=== PATIENT | female | born 2005 | race Caucasian/White ===

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

== ENCOUNTER 2023-10-23 12:16 | Emergency (ER) | payer MEDICAID, SELFPAY ==
--- NOTE | ~2023-10-23 | XR_ITS ---
EXAMINATION: XR chest 1V portable 10/23/2023 12:30 INDICATION: Upper respiratory infection PROCEDURE: AP portable chest COMPARISON: 02/13/2017 FINDINGS: The lungs are clear. The cardiomediastinal silhouette is within normal limits. There are no pleural effusions. There is no pneumothorax suspected. IMPRESSION: 1: NO ACUTE CARDIOPULMONARY DISEASE. Reviewed, dictated and finalized at location B.
[2023-10-23 12:19] VITALS: BP 127/93; PULSE 102; RESP 20; TEMP 36.8; O2SAT 99
[2023-10-23 13:15] LABS: Influenza A QL RT-PCR Negative (Negative); Influenza B QL RT-PCR Negative (Negative); RSV RNA, RT-PCR Negative (Negative); SARS-CoV-2 RNA PCR Negative (Negative)
--- NOTE | 2023-10-23 13:32 | ED.GENADULT ---
HPI - General Adult General Chief complaint: Upper Respiratory Infection Stated complaint: strep +, ear pain, ST Time Seen by Provider: 10/23/23 12:19 History of Present Illness HPI narrative: 18-year-old female presents to the emergency department for evaluation for persistent sore throat. Patient states she has had a sore throat for the last few days. Patient did get evaluated at [facility] and was diagnosed with strep throat and was started on antibiotics probably 2 days ago. Patient states she is still having sore throat and ear pain. Patient states that she has been taking the antibiotic but has not been taking anything for pain control. Related Data Home Medications Medication Instructions Recorded Confirmed No Home Medications 01/10/21 01/10/21 Allergies Allergy/AdvReac Type Severity Reaction Status Date / Time No Known Allergies Allergy Verified 10/23/23 12:34 Review of Systems Review of Systems: All systems reviewed & are unremarkable except as noted in HPI and below PMFSH Past Medical History Medical History (Updated 10/23/23 @ 13:35 by Alexis Denise MD) No active medical problems Social History Social History (Updated 01/10/21 @ 11:24 by Nataliya Doyle PA-C) Smoking status: Never smoker Exam Narrative: APPEARANCE: Well appearing, no pain, no distress, well-nourished. HEAD: normocephalic, atraumatic. EYES: PERRLA/EOMI, conjunctivae clear. NOSE: Normal no drainage EARS:TMS clear with good light reflex. THROAT: Pharynx clear, no exudate. NECK: Supple. No adenopathy, no masses. RESPIRATORY: Airway patent, respirations nonlabored. Clear to auscultation bilaterally, no rales, rhonchi, wheezing. CARDIOVASCULAR: Regular rate and rhythm without murmurs rubs or gallops. ABDOMINAL: Soft, nontender, nondistended, normal bowel sounds MUSCULOSKELETAL: Moves all extremities. Strength/ROM intact, No edema, No calf tenderness. NEURO: Alert. Cranial nerves II through XII intact. SKIN: Warm, dry. Normal Color Course Vital Signs Vital signs: Vital Signs Temperature 98.3 F 10/23/23 12:19 Pulse Rate 102 H 10/23/23 12:19 Respiratory Rate 20 10/23/23 12:19 Blood Pressure 127/93 H 10/23/23 12:19 Pulse Oximetry 99 10/23/23 12:19 Oxygen Delivery Room Air 10/23/23 12:19 Temperature 98.3 F 10/23/23 12:19 Pulse Rate 102 H 10/23/23 12:19 Respiratory Rate 20 10/23/23 12:19 Blood Pressure 127/93 H 10/23/23 12:19 Pulse Oximetry 99 10/23/23 12:19 Oxygen Delivery Room Air 10/23/23 12:37 Medical Decision Making MDM Narrative Medical decision making narrative: 18-year-old female presents emergency department for evaluation for ear pain and sore throat. Exam shows tonsils with exudate but tonsils are not kissing and no posterior swelling. No concern for peritonsillar posterior pharyngeal abscess. Patient states she has not been taking Tylenol or ibuprofen for pain control. Patient was advised to do this. Patient is also treated with a single dose of IM dexamethasone. Patient was encouraged of close follow-up with her primary care physician. All questions concerns were addressed. Patient was well-appearing at time of discharge. Differential Diagnosis Differential Diagnosis: Strep, COVID, thoughts last, peritonsillar abscess, posterior pharyngeal abscess Vital Signs Vital Signs: Vital Signs Temperature 98.3 F 10/23/23 12:19 Pulse Rate 102 H 10/23/23 12:19 Respiratory Rate 20 10/23/23 12:19 Blood Pressure 127/93 H 10/23/23 12:19 Pulse Oximetry 99 10/23/23 12:19 Oxygen Delivery Room Air 10/23/23 12:19 Temperature 98.3 F 10/23/23 12:19 Pulse Rate 102 H 10/23/23 12:19 Respiratory Rate 20 10/23/23 12:19 Blood Pressure 127/93 H 10/23/23 12:19 Pulse Oximetry 99 10/23/23 12:19 Oxygen Delivery Room Air 10/23/23 12:37 Lab Data Lab results reviewed: Yes I reviewed the patient's lab results. Labs: Lab Results
== END 2023-10-23 14:02 | disposition home or self-care (01) ==
PROVIDERS: Emergency Provider Emergency Medicine
DX: J02.9 Acute pharyngitis, unspecified (principal); Z20.822 Contact with and (suspected) exposure to COVID-19
CPT/HCPCS: 71045; 87637; 99283

== ENCOUNTER 2023-11-12 09:04 | Emergency (ER) | payer MEDICAID, SELFPAY ==
[2023-11-12 09:06] VITALS: BP 147/76; PULSE 118; RESP 16; TEMP 37; O2SAT 100
[2023-11-12 09:38] LABS: Strep Group A RT-PCR DETECTED (Negative)
--- NOTE | 2023-11-12 10:32 | ED.GENADULT ---
[facility] - General Adult General Chief complaint: Unspecified Stated complaint: sore throat Time Seen by Provider: 11/12/23 10:22 Source: patient Mode of arrival: ambulatory Limitations: no limitations History of Present Illness HPI narrative: This is a 18-year-old female who presents to the ED for chief complaint sore throat Beginning yesterday evening. 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 States that she took did take 10 days worth of Augmentin and seemed to have complete resolution with that course. States that this strep throat is going around the daycare again and she feels she may have contracted it again. Denies fevers, chills, worse or muffled voice, drooling, trismus, dysphagia. Related Data Allergies Allergy/AdvReac Type Severity Reaction Status Date / Time No Known Allergies Allergy Verified 11/12/23 10:19 Review of Systems Review of Systems: All systems as dictated in [facility] Past Medical History Medical History (Updated 11/12/23 @ 10:35 by Randy Dallas PA-C) No active medical problems Social History Social History (Updated 01/10/21 @ 11:24 by Nataliya Doyle PA-C) Smoking status: Never smoker Exam Narrative: GENERAL: Well-appearing, well-nourished, and in no acute distress. HEAD: Normocephalic, atraumatic. EYES: PERRLA and EOMI. ENT: 3 to 4+ tonsillar swelling bilaterally. Exudates noted bilaterally. Uvula is midline. No muffled voice. No trismus or drooling. TMs normal bilaterally Nares clear, no rhinorrhea or epistaxis. Mucous membranes moist. Oropharynx without tonsillar hypertrophy exudate or other lesions. NECK: Supple. No adenopathy or masses. CHEST: No respiratory distress. Clear to auscultation. No wheezes rales or rhonchi HEART: Regular rate and rhythm. No murmur heard. Normal peripheral pulses. ABDOMEN: Soft, nontender, nondistended, normal active bowel sounds. MSK: Normal range of motion. No edema. SKIN: Warm, dry, no rash. NEURO: Alert and oriented x4. No focal deficits. PSYCH: Normal mood and affect. Course Vital Signs Vital signs: Vital Signs Temperature 98.6 F 11/12/23 09:06 Pulse Rate 118 H 11/12/23 09:06 Respiratory Rate 16 11/12/23 09:06 Blood Pressure 147/76 H 11/12/23 09:06 Pulse Oximetry 100 11/12/23 09:06 Oxygen Delivery Room Air 11/12/23 09:06 Temperature 98.6 F 11/12/23 09:06 Pulse Rate 75 11/12/23 10:53 Respiratory Rate 18 11/12/23 10:53 Blood Pressure 112/78 11/12/23 10:53 Pulse Oximetry 98 11/12/23 10:53 Oxygen Delivery Room Air 11/12/23 09:06 Medical Decision Making MDM Narrative Medical decision making narrative: this is a 18-year-old female who presents to the ED for chief complaint of sore throat. Trip swab is positive here. Vitals are normal. Seems she is likely having a repeat bout of strep pharyngitis. 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 She did well on Augmentin previously so we will prescribe this again today. Encouraged to follow up with PCP closely on this issue since this is a 2nd bout of strep throat and a very short time. Offered further workup with labs but patient is deferring today. I think this is very reasonable. Presentation is consistent with strep pharyngitis. Pt will be discharged in stable condition. Return precautions given and supportive measures discussed. Pt is understanding and agreeable with plan for discharge and follow-up with PCP. Vital Signs Vital Signs: Vital Signs Temperature 98.6 F 11/12/23 09:06 Pulse Rate 118 H 11/12/23 09:06 Respiratory Rate 16 11/12/23 09:06 Blood Pressure 147/76 H 11/12/23 09:06 Pulse Oximetry 100 11/12/23 09:06 Oxygen Delivery Room Air 11/12/23 09:06 Temperature 98.6 F 11/12/23 09:06 Pulse Rate 75 11/12/23 10:53 Respiratory Rate 18 11/12/23 10:53 Blood Pressure 112/78 11/12/23 10:53 Pulse Ox
[2023-11-12 10:53] VITALS: BP 112/78; PULSE 75; RESP 18; O2SAT 98
[2023-11-12 11:29] LABS: Influenza A QL RT-PCR Negative (Negative); Influenza B QL RT-PCR Negative (Negative); RSV RNA, RT-PCR Negative (Negative); SARS-CoV-2 RNA PCR Negative (Negative)
== END 2023-11-12 10:54 | disposition home or self-care (01) ==
PROVIDERS: Emergency Medicine; Emergency Provider Physician Assistant
DX: J02.0 Streptococcal pharyngitis (principal); Z20.822 Contact with and (suspected) exposure to COVID-19
CPT/HCPCS: 87637; 87651; 99283

== ENCOUNTER 2023-12-14 19:53 | Emergency (ER) | payer MEDICAID, SELFPAY ==
[2023-12-14 20:09] VITALS: BP 131/72; PULSE 82; RESP 18; TEMP 36.6; O2SAT 100
[2023-12-14 21:05] LABS: Strep Group A RT-PCR NOT DETECTED (Negative)
[2023-12-14 22:04] LABS: Influenza A QL RT-PCR Negative (Negative); Influenza B QL RT-PCR Negative (Negative); RSV RNA, RT-PCR Negative (Negative); SARS-CoV-2 RNA PCR Negative (Negative)
[2023-12-14 22:30] VITALS: BP 114/75; PULSE 66; RESP 18; TEMP 36.7; O2SAT 99
--- NOTE | 2023-12-14 23:12 | ED.URI ---
HPI - URI/Sore Throat General Chief Complaint: Upper Respiratory Infection Stated Complaint: sore throat Time Seen by Provider: 12/14/23 20:57 Source: patient Mode of arrival: ambulatory Limitations: no limitations History of Present Illness HPI Narrative: This is a 18-year-old female that presents to the emergency department for cold symptoms present over the last 6 days. Reports cough, congestion, rhinorrhea. Denies fevers or sore throat Related Data Allergies Allergy/AdvReac Type Severity Reaction Status Date / Time No Known Allergies Allergy Verified 12/14/23 19:54 Review of Systems Review of Systems: CONSTITUTIONAL: Denies fever ENT: Reports rhinorrhea, congestion. Denies sore throat, or otalgia. RESPIRATORY: Reports cough All systems reviewed & are unremarkable except as noted in HPI and below PMFSH Past Medical History Medical History (Updated 12/14/23 @ 23:13 by Nataliya Doyle PA-C) No active medical problems Social History Social History (Updated 01/10/21 @ 11:24 by Nataliya Doyle PA-C) Smoking status: Never smoker Exam Narrative: GENERAL: Well-appearing, well-nourished, and in no acute distress. HEAD: Normocephalic, atraumatic. EYES: EOMI. ENT: Nares clear, no rhinorrhea or epistaxis. Mucous membranes moist. Oropharynx without tonsillar hypertrophy exudate or other lesions. Bilateral TMs pearly ceballos non-bulging NECK: Supple. No adenopathy or masses. CHEST: Clear to auscultation. No respiratory distress. No wheezes rales or rhonchi HEART: Regular rate and rhythm. No murmur heard. Normal peripheral pulses. EXTREMITIES: Normal range of motion. No edema. SKIN: Warm, dry, no rash. NEURO: No focal deficits. Alert and oriented x3. PSYCH: Normal mood and affect Course Course Emergency Course: patient updated on workup and agrees with plan of care Vital Signs Vital signs: Vital Signs Temperature 97.9 F 12/14/23 20:09 Pulse Rate 82 12/14/23 20:09 Respiratory Rate 18 12/14/23 20:09 Blood Pressure 131/72 12/14/23 20:09 Pulse Oximetry 100 12/14/23 20:09 Temperature 97.9 F 12/14/23 20:09 Pulse Rate 82 12/14/23 20:09 Respiratory Rate 18 12/14/23 20:09 Blood Pressure 131/72 12/14/23 20:09 Pulse Oximetry 100 12/14/23 20:09 MDM - URI/Sore Throat MDM Narrative Medical decision making narrative: patient presents the emergency department for cold symptoms present over the last 6 days. She is afebrile and nontoxic appearing. Lungs are clear on exam. Influenza, RSV, COVID, strep screens are negative. Patient was updated on her workup. Instructed on further care viral infection. She is to follow up with primary provider. She was given warnings to return to the ER Differential Diagnosis Differential diagnosis: Likely upper respiratory infection, sinusitis, viral infection, bronchitis, influenza, pharyngitis and other (COVID) Lab Data Attestation: I reviewed the patient's lab results. Labs: Lab Results 12/14/23 Range/Units 20:30 Influenza A (RT-PCR) Negative (Negative) Influenza B (RT-PCR) Negative (Negative) RSV (RT-PCR) Negative (Negative) SARS-CoV-2 RNA (RT-PCR) Negative (Negative) Group A Strep (PCR) Not detected (Negative) Critical Care Time Critical Care Time Critical Care Time: No Discharge Plan Discharge Clinical Impression: Upper respiratory infection Qualifiers: URI type: unspecified URI Qualified Code(s): J06.9 - Acute upper respiratory infection, unspecified Patient Disposition: Home, Self-Care Condition: Stable Instructions: Upper Respiratory Infection (ED) Additional Instructions: Return to the emergency department for worsening symptoms, or any other concerns Remain well-hydrated, get plenty of rest. Take Tylenol or Motrin [id number] for pain as needed. Flonase for nasal congestion. Zyrtec for runny nose. Lozenges or Chloraseptic spray for sore throat. Follow up wit
== END 2023-12-14 23:17 | disposition home or self-care (01) ==
PROVIDERS: Emergency Provider Physician Assistant
DX: J06.9 Acute upper respiratory infection, unspecified (principal); Z20.822 Contact with and (suspected) exposure to COVID-19
CPT/HCPCS: 87637; 87651; 99283

== ENCOUNTER 2024-05-08 18:23 | Emergency (ER) | payer OTHER, SELFPAY ==
--- OUTSIDE RECORDS SUMMARY | 2024-05-08 18:24 | XMS_ITS | Patient Health Summary ---
Author Organization [facility] Address [address] [place] [address] Care Team Providers Care Hot Knife Foxing Cutter Name Role Phone Theron Gregory MD [facility] Care Provider Note from [facility],non-owned Affiliates and Associated Physician Practices is amultiple site organization consisting of ambulatory clinics and hospital sitesin [place], [place], [place] and [place]. This disclosure is being madepursuant to the Care Everywhere program and may not contain all information available regarding this patient. Last updated 17.[facility] Allergies No known active allergies Medications * Be aware that medications may not be up to date on this document. Alwaysverify current medications with the patient. * ibuprofen (MOTRIN) 200 MG tablet Take 400 mg by mouth every 6 hours as needed for Pain Active Problems Problem Noted Date Diagnosed Date Chronic right-sided low back pain without sciati ca 03/20/2020 Acute left ankle pain 06/12/2018 Lisfranc dislocation, left, subsequent encounter 12/03/2017 Social History Tobacco Use Types Packs/Day Years Used Date Smoking Tobacco: Never Smokeless Tobacco: Never Sex and Gender Information Value Date Recorded Sex Assigned at Not on file Gender Identity Not on file Sexual Orientation Not on file Last Filed Vital Signs Vital Sign Reading Time Taken Comments Blood Pressure 128/58 03/20/2020 2:02 PM PROCESS TREATER Pulse 100 06/18/2013 12:08 PM CDT Temperature - - Respiratory Rate 24 06/18/2013 12:08 PM CDT Oxygen Saturation 100% 06/18/2013 12:08 PM CDT Inhaled Oxygen Concentration - - Weight 60.6 kg (133 lb 9.6 oz) 03/20/2020 2:02 P M PROCESS TREATER Height 164.8 cm (5' 4.88 ) 03/20/2020 2:02 PM CS T Body Mass Index 22.31 03/20/2020 2:02 PM PROCESS TREATER Procedures * XR SPINE ENTIRE 2 OR 3VW(Performed 03/20/2020) Performed for Other back pain, unspecified chronicity * XR ANKLE LEFT 3VW OR MORE(Performed 06/12/2018) Performed for Acute left ankle pain * XR FOOT LEFT WT BEARING 3VW(Performed 03/04/2018) Performed for Lisfranc dislocation, left, subsequent encounter * XR FOOT RIGHT WT BEARING 3VW(Performed 03/04/2018) Performed for Lisfranc dislocation, left, subsequent encounter * XR FOOT LEFT WT BEARING 3VW(Performed 12/31/2017) Performed for Lisfranc dislocation, left, subsequent encounter * XR FOOT LEFT WT BEARING 3VW(Performed 12/03/2017) Performed for Closed nondisplaced fracture of first metatarsal bone of left foot, initial encounter, Closed nondisplaced fracture of second metatarsal bone of left foot, initial encounter, Closed nondisplaced fracture of intermediate cuneiform of left foot, initial encounter * CT LOWER EXT LEFT WO CONTRAST(Performed 11/12/2017) Performed for Foot injury, left, initial encounter * MRI BRAIN WO CONTRAST(Performed 06/18/2013) Performed for Headache Results * XR SPINE ENTIRE 2 OR 3VW (03/20/2020 2:17 PM PROCESS TREATER) Anatomical Region Laterality Modality Spine Radiographic Zayda ging 03/20/2020 2:16 PM PROCESS TREATER Impressions 03/20/2020 2:42 PM PROCESS TREATER 1. Spinal curvature as above, no intrinsic vertebral body anomaly. Please see orthopedic surgery note for Ramirez angle measurements. 2. Right inferior pelvic tilt. Risser IV-V Reading Radiologist: Troy Funez on 03/20/2020 at 2:42 PM Narrative 03/20/2020 2:42 PM PROCESS TREATER INDICATION: Other dorsalgia COMPARISON: None available. TECHNIQUE: Upright frontal and lateral view(s) of the spine. FINDINGS: There are 12 bilateral thoracic ribs, 5 nonrib-bearing lumbar-type vertebral bodies. No paraspinal thickening or intrinsic vertebral body anomaly. S-shaped spinal curvature, measurements to be made by orthopedics. Right inferior pelvic tilt, Risser IV-V. No dislocation of the hips. No lytic or blastic bony lesion No vertebral body compression. No presacral mass effect. No spondylolisthesis or spondylolysis. Disc spaces appear maintained. Other findings: Cardiac size normal. Midline trachea. Clear lungs. No free air. Mild to moderate amount of stool. No unexpected abdominal calcification or mass effect. Procedure Note Troy Funez MD - 03/20/2020 INDICATION: Other dorsalgia COMPARISON: None available. TECHNIQUE: Upright frontal and lateral view(s) of the spine. FINDINGS: There are 12 bilateral thoracic ribs, 5 nonrib-bearing lumbar-typevertebral bodies. No paraspinal thickening or intrinsic vertebral body anomaly.S-shaped spinal curvature, measurements to be made by orthopedics. Right inferiorpelvic tilt, Risser IV-V. No dislocation of the hips. No lytic or blastic bonylesion No vertebral body compression. No presacral mass effect. Nospondylolisthesis or spondylolysis. Disc spaces appear maintained. Other findings: Cardiac size normal. Midline trachea. Clear lungs. No freeair. Mild to moderate amount of stool. No unexpected abdominal calcification ormass effect. IMPRESSION 1. Spinal curvature as above, no intrinsic vertebral body anomaly. Pleasesee orthopedic surgery note for Ramirez angle measurements. 2. Right inferior pelvic tilt. Risser IV-V Reading Radiologist: Troy Funez on 03/20/2020 at 2:42 PM Ashish S Rambo MIG[facility]EL DIAGNOSTIC IMAGING O RDERABLES * XR ANKLE LEFT 3VW OR MORE (06/12/2018 2:07 PM CDT) Anatomical Region Laterality Modality Lower Extremity Radiographic Zayda ging 06/12/2018 2:23 PM CDT Impressions 06/12/2018 2:28 PM CDT No acute ankle abnormality. Healing midfoot fractures. Reading Radiologist: Jaime Smith MD on 06/12/2018 at 2:28 PM Narrative 06/12/2018 2:28 PM CDT INDICATION: Left ankle pain, history of left foot Lisfranc injury EXAMINATION: 3 nonweightbearing view(s) of the left ankle 06/12/2018 COMPARISON: Multiple prior exams of the left foot including radiographs 03/04/[address] 11/12/2017 FINDINGS: Heterogeneous sclerosis of the base of the first metatarsal and medial cuneiform consistent with healing fractures. The ankle mortise is symmetric. Talar dome has normal contour and mineralization. Smooth accessory ossicle adjacent to the lateral malleolus. No acute fracture, joint effusion or subluxation. Procedure Note Jaime Smith MD - 06/12/2018 INDICATION: Left ankle pain, history of left foot Lisfranc injury EXAMINATION: 3 nonweightbearing view(s) of the left ankle 06/12/2018 COMPARISON: Multiple prior exams of the left foot including radiographs 03/04/[address] 11/12/2017 FINDINGS: Heterogeneous sclerosis of the base of the first metatarsal and medial cuneiform consistent with healing fractures. The ankle mortise is symmetric. Talar dome has normal contour and mineralization. Smooth accessory ossicle adjacent to the lateral malleolus. No acute fracture, joint effusion or subluxation. IMPRESSION No acute ankle abnormality. Healing midfoot fractures. Reading Radiologist: Jaime Smith MD on 06/12/2018 at 2:28 PM Srini Brantley PA-C DIAGNOSTIC IMAGING O RDERABLES * XR FOOT RIGHT WT BEARING 3VW (03/04/2018 11:36 AM PROCESS TREATER) Anatomical Region Laterality Modality Ankle / Foot Radiographic Zayda ging 03/04/2018 11:3 9 AM PROCESS TREATER Impressions 03/04/2018 11:43 AM PROCESS TREATER Healing left foot fractures. Bilateral pes planus. Reading Radiologist: Jaime Smith MD on 03/04/2018 at 11:43 AM Narrative 03/04/2018 11:43 AM PROCESS TREATER INDICATION: Dislocation of tarsometatarsal joint of left foot, subsequent encounter EXAMINATION: 3 weightbearing view(s) of the left foot 3 weightbearing views of the right foot COMPARISON: 6 left foot radiographs 12/31/2017, 12/03/2017; CT left foot 11/12/2017 FINDINGS: Left foot: Continued healing of the nondisplaced fractures of the base of the first metatarsal, medial and middle cuneiforms. No significant intermetatarsal widening. Normal tarsometatarsal alignment. Mild pes planus on lateral projection. Right foot: Pes planus. No fracture or subluxation. Joint spacing and alignment are preserved. Procedure Note Jaime Smith MD - 03/04/2018 INDICATION: Dislocation of tarsometatarsal joint of left foot, subsequent encounter EXAMINATION: 3 weightbearing view(s) of the left foot 3 weightbearing views of the right foot COMPARISON: 6 left foot radiographs 12/31/2017, 12/03/2017; CT left foot 11/12/2017 FINDINGS: Left foot: Continued healing of the nondisplaced fractures of the base of the first metatarsal, medial and middle cuneiforms. No significant intermetatarsal widening. Normal tarsometatarsal alignment. Mild pes planus on lateral projection. Right foot: Pes planus. No fracture or subluxation. Joint spacing and alignment are preserved. IMPRESSION Healing left foot fractures. Bilateral pes planus. Reading Radiologist: Jaime Smith MD on 03/04/2018 at 11:43 AM Lexa Massey MD DIAGNOSTIC IMAGING O RDERABLES * XR FOOT LEFT WT BEARING 3VW (03/04/2018 11:36 AM PROCESS TREATER) Only the most recent of3 resultswithin the time period is included. Anatomical Region Laterality Modality Ankle / Foot Radiographic Zayda ging 03/04/2018 11:3 9 AM PROCESS TREATER Impressions 03/04/2018 11:43 AM PROCESS TREATER Healing left foot fractures. Bilateral pes planus. Reading Radiologist: Jaime Smith MD on 03/04/2018 at 11:43 AM Narrative 03/04/2018 11:43 AM PROCESS TREATER INDICATION: Dislocation of tarsometatarsal joint of left foot, subsequent encounter EXAMINATION: 3 weightbearing view(s) of the left foot 3 weightbearing views of the right foot COMPARISON: 6 left foot radiographs 12/31/2017, 12/03/2017; CT left foot 11/12/2017 FINDINGS: Left foot: Continued healing of the nondisplaced fractures of the base of the first metatarsal, medial and middle cuneiforms. No significant intermetatarsal widening. Normal tarsometatarsal alignment. Mild pes planus on lateral projection. Right foot: Pes planus. No fracture or subluxation. Joint spacing and alignment are preserved. Procedure Note Jaime Smith MD - 03/04/2018 INDICATION: Dislocation of tarsometatarsal joint of left foot, subsequent encounter EXAMINATION: 3 weightbearing view(s) of the left foot 3 weightbearing views of the right foot COMPARISON: 6 left foot radiographs 12/31/2017, 12/03/2017; CT left foot 11/12/2017 FINDINGS: Left foot: Continued healing of the nondisplaced fractures of the base of the first metatarsal, medial and middle cuneiforms. No significant intermetatarsal widening. Normal tarsometatarsal alignment. Mild pes planus on lateral projection. Right foot: Pes planus. No fracture or subluxation. Joint spacing and alignment are preserved. IMPRESSION Healing left foot fractures. Bilateral pes planus. Reading Radiologist: Jaime Smith MD on 03/04/2018 at 11:43 AM Lexa Massey MD DIAGNOSTIC IMAGING O RDERABLES * CT LOWER EXT LEFT WO CONTRAST (11/12/2017 8:34 AM CDT) Anatomical Region Laterality Modality Lower Extremity Computed Tomogra phy 11/12/2017 8:49 AM CDT Impressions 11/12/2017 9:54 AM CDT Minimally displaced first metatarsal base, medial cuneiform, and middle cuneiform fractures with lateral displacement of the first metatarsal base relative to the medial cuneiform, consistent with Lisfranc fracture injury. Dictated by Jessie Shea MD (residential leasing agent). I, Maylin Castillo, have personally reviewed the images and I agree with this report. Reading Radiologist: Jessie Shea MD on 11/12/2017 at 9:54 AM Narrative 11/12/2017 9:54 AM CDT EXAMINATION: Left foot CT without contrast DATE: 11/12/2017 HISTORY: Plantar flexion injury of left foot/ankle. Evaluate for Lisfranc injury. TECHNIQUE: Thin collimation axial tomographic images of the left foot is obtained without intravenous contrast. Coronal and sagittal reformatted images are provided for review. DOSE: CTDIvol: 2.83 mGy; DLP: 47.3 mGy-cm The reported CTDIvol (mGy) and DLP (mGy-cm) values are generated from scan acquisition factors based on 32 cm (body) or 16 cm (head) phantoms and may underestimate (or overestimate) actual patient dose based on patient size and other factors. COMPARISON: None FINDINGS: A nondisplaced intra-articular fracture is seen along the anterolateral aspect of the medial cuneiform. A minimally displaced intra-articular first metatarsal base fracture is seen along the plantar aspect. There is a minimally displaced intra-articular fracture along the dorsal aspect of the middle cuneiform involving the middle cuneiform second metatarsal joint space. The base of the first metatarsal is laterally positioned relative to the medial cuneiform. The second and third metatarsal bases are aligned with their respective cuneiforms on this nonweightbearing exam. A cast is in place. Soft tissue edema is seen centered along the midfoot. Procedure Note Maylin Castillo MD - 11/12/2017 EXAMINATION: Left foot CT without contrast DATE: 11/12/2017 HISTORY: Plantar flexion injury of left foot/ankle. Evaluate for Lisfranc injury. TECHNIQUE: Thin collimation axial tomographic images of the left foot is obtained without intravenous contrast. Coronal and sagittal reformatted images are provided for review. DOSE: CTDIvol: 2.83 mGy; DLP: 47.3 mGy-cm The reported CTDIvol (mGy) and DLP (mGy-cm) values are generated from scan acquisition factors based on 32 cm (body) or 16 cm (head) phantoms and may underestimate (or overestimate) actual patient dose based on patient size and other factors. COMPARISON: None FINDINGS: A nondisplaced intra-articular fracture is seen along the anterolateral aspect of the medial cuneiform. A minimally displaced intra-articular first metatarsal base fracture is seen along the plantar aspect. There is a minimally displaced intra-articular fracture along the dorsal aspect of the middle cuneiform involving the middle cuneiform second metatarsal joint space. The base of the first metatarsal is laterally positioned relative to the medial cuneiform. The second and third metatarsal bases are aligned with their respective cuneiforms on this nonweightbearing exam. A cast is in place. Soft tissue edema is seen centered along the midfoot. IMPRESSION Minimally displaced first metatarsal base, medial cuneiform, and middle cuneiform fractures with lateral displacement of the first metatarsal base relative to the medial cuneiform, consistent with Lisfranc fracture injury. Dictated by Jessie Shea MD (residential leasing agent). I, Maylin Castillo, have personally reviewed the images and I agree with this report. Reading Radiologist: Jessie Shea MD on 11/12/2017 at 9:[address] ORDERABLES * MRI BRAIN NON CONTRAST (06/18/2013 1:00 PM CDT) Anatomical Region Laterality Modality Head Magnetic Resonan ce 06/18/2013 2:06 PM CDT Impressions 06/18/2013 2:18 PM CDT 1. Normal examination of the brain. 2. Diffuse paranasal sinus disease as described above. Dictated by SUSAN SANDERS on 06/18/2013 2:15 PM Gail Villa, have personally reviewed the images and I agree with this report. Narrative 06/18/2013 2:18 PM CDT EXAMINATION: Magnetic resonance imaging (MRI) of the brain without contrast HISTORY: Headache. TECHNIQUE: MRI of the brain was performed without contrast according to standard protocol. FINDINGS: No prior study is available for comparison. No evidence of acute or chronic hemorrhage is identified. No evidence of acute cerebral infarction is seen. The ventricles are of normal size, shape, and morphology. No mass effect or midline shift is seen. The corpus callosum and sella appear normal. The posterior fossa, brainstem, and craniocervical junction appear normal. Other than moderate maxillary and ethmoid and mild frontal and sphenoid sinus disease, the visualized portions of the orbits, paranasal sinuses, and mastoids appear normal. Normal flow voids are demonstrated in the carotid arteries and basilar artery. The calvarium and visualized cervical spine appear normal. Procedure Note Gail Bob MD - 06/18/2013 EXAMINATION: Magnetic resonance imaging (MRI) of the brain without contrast HISTORY: Headache. TECHNIQUE: MRI of the brain was performed without contrast according to standard protocol. FINDINGS: No prior study is available for comparison. No evidence of acute or chronic hemorrhage is identified. No evidence of acute cerebral infarction is seen. The ventricles are of normal size, shape, and morphology. No mass effect or midline shift is seen. The corpus callosum and sella appear normal. The posterior fossa, brainstem, and craniocervical junction appear normal. Other than moderate maxillary and ethmoid and mild frontal and sphenoid sinus disease, the visualized portions of the orbits, paranasal sinuses, and mastoids appear normal. Normal flow voids are demonstrated in the carotid arteries and basilar artery. The calvarium and visualized cervical spine appear normal. IMPRESSION 1. Normal examination of the brain. 2. Diffuse paranasal sinus disease as described above. Dictated by SUSAN SANDERS on 06/18/2013 2:15 PM I, Gail Bob, have personally reviewed the images and I agree with this report. Shawn Domínguez MD MR ORDERABLES Care Teams Hot Knife Foxing Cutter Relationship Specialty Start Date End Date Theron Gregory MD [address] [place] [id number] PCP - General Pediatrics 03/20/20
--- OUTSIDE RECORDS SUMMARY | 2024-05-08 18:24 | XMS_ITS | Referral Summary ---
Author Organization [facility] Address [address] [place] [address] Care Team Providers Care Flaker Operator Name Role Phone Theron Gregory MD [facility] Care Provider Source Comments [facility],non-owned Affiliates and Associated Physician Practices is amultiple site organization consisting of ambulatory clinics and hospital sitesin [place], [place], [place] and [place]. This disclosure is being madepursuant to the Care Everywhere program and may not contain all information available regarding this patient. Last updated 17.[facility] Allergies No known active allergies Medications * Be aware that medications may not be up to date on this document. Alwaysverify current medications with the patient. Medication Sig Dispensed Refills Start Date End Date Status ibuprofen (MOTRIN) 200 MG tablet Take 400 mg by mouth every 6 hours as needed for Pain Active Active Problems Problem Noted Date Diagnosed Date Chronic right-sided low back pain without sciati ca 03/20/2020 Assessment & Plan (03/20/2020 4:52 PM GRAVEL ROOFER): PLAN: 1. Questions solicited and answered. 2. Continue with existing conservative treatment program. 3. Prescription provided for physical therapy. 4. Medications Prescribed: OTC analgesics as needed 5. Activity Restrictions: none 6. Weightbearing status: No Restrictions 7. Follow up: in 3 month(s) via telemedicine Acute left ankle pain 06/12/2018 Lisfranc dislocation, [...] Comments Blood Pressure 128/58 03/20/2020 2:02 PM GRAVEL ROOFER Pulse 100 06/18/2013 12:08 PM CDT Temperature - - Respiratory Rate 24 06/18/2013 12:08 PM CDT Oxygen Saturation 100% 06/18/2013 12:08 PM CDT Inhaled Oxygen Concentration - - Weight 60.6 kg (133 lb 9.6 oz) 03/20/2020 2:02 P M GRAVEL ROOFER Height 164.8 cm (5' 4.88 ) 03/20/2020 2:02 PM CS T Body Mass Index 22.31 03/20/2020 2:02 PM GRAVEL ROOFER Plan of Treatment Not on file Care Teams Flaker Operator Relationship Specialty Start Date End Date Theron Gregory MD [address] [place] [phone] PCP - General Pediatrics 03/20/20
--- OUTSIDE RECORDS SUMMARY | 2024-05-08 18:24 | XMS_ITS | Clinical Summary ---
Author Organization [facility] Address [address] [place] [address] Care Team Providers Care Priming Mixture Carrier Name Role Phone Theron Gregory MD [facility] Care Provider Source Comments [facility],non-owned Affiliates and Associated Physician Practices is amultiple site organization consisting of ambulatory clinics and hospital sitesin [place], [place], [place] and [place]. This disclosure is being madepursuant to the Care Everywhere program and may not contain all information available regarding this patient. Last updated 17.[facility] Allergies No known active allergies Medications * [...] 03/20/2020 Assessment & Plan (03/20/2020 4:52 PM CAR DUMPER OPERATOR HELPER): PLAN: 1. Questions solicited and answered. 2. [...] Comments Blood Pressure 128/58 03/20/2020 2:02 PM CAR DUMPER OPERATOR HELPER Pulse 100 06/18/2013 12:08 PM CDT Temperature - - Respiratory Rate 24 06/18/2013 12:08 PM CDT Oxygen Saturation 100% 06/18/2013 12:08 PM CDT Inhaled Oxygen Concentration - - Weight 60.6 kg (133 lb 9.6 oz) 03/20/2020 2:02 P M CAR DUMPER OPERATOR HELPER Height 164.8 cm (5' 4.88 ) 03/20/2020 2:02 PM CS T Body Mass Index 22.31 03/20/2020 2:02 PM CAR DUMPER OPERATOR HELPER Plan of Treatment Health Maintenance Due Date Last Done Comments HIV SCREENING 08/09/2018 HPV VACCINE (1 - 3-dose series) 08/09/2018 CHLAMYDIA/GONORRHEA SCREENING 2019 MENINGOCOCCAL (Group B) VACC INE (1 of 2 - Standard) 2019 HEPATITIS C SCREENING 08/05/2021 DTAP/TDAP/TD VACCINES (1 - Tdap) 08/09/2022 HEPATITIS B VACCINE (1 of 3 - 19+ 3-dose series) 08/09/2022 COVID-19 VACCINE (1 - 2023-2 5 season) 2023 INFLUENZA VACCINE (#1) 2023 DEPRESSION SCREENING 03/31/2024 ZOSTER VACCINE (1 of 2) 08/09/2053 HIB VACCINE Aged Out No longer eligi ble based on patient's age to complete this topic MENINGOCOCCAL VACCINE Aged Out No nader sania eligible based on patient's age to complete this topic PNEUMOCOCCAL VACCINE Aged Out No long er eligible based on patient's age to complete this topic Care Teams Priming Mixture Carrier Relationship Specialty Start Date End Date Theron Gregory MD [address] [place] [phone] PCP - General Pediatrics 03/20/20
[2024-05-08 18:25] VITALS: BP 145/78; PULSE 125; RESP 20; TEMP 36.8; O2SAT 100
[2024-05-08 18:51] VITALS: RESP 19
--- OUTSIDE RECORDS SUMMARY | 2024-05-08 18:56 | XMS_ITS | Data Portability ---
Author Organization [facility] Address [address] [place] [address] Care Team Providers Care Computer Aided Design Drafter Name Role Phone KAMILAHHASEEB RADHA HIMANSHU Primary Care Provider Assessment Encounter Date Assessment Date Assessment LastModified by Organization Details LastModified Time 01/26/2016 01/26/2016 Well Child With Decreased Vision. Mother states pt has been seen by Optometry in past , Vision 20/200, Referring to Ophthalmology. I also recommended pt see her French Lecturer and wear corrective glasses. Mother to sign med record release form from prior PCP, states immunizations UTD including Fluzone. [email or web address] Not available 01/26/2016 12:06:46 Plan of Treatment Reminders Order Date Submit Date Provider Last Modified By Organization Details Last Modified Time Details Appointments None recorde d. Lab None recorde d. Referral pediatr ic ophthal mologis t referra l [facility] , [address] [place], [address], 7 13:22:17 pediatr ic orthope dic referra l 2019 020 [facility], [address] [place], [address], 0 16:06:[address] st referra l 2020 021 [facility], [address] [place], [address], 1 09:34:41 Procedures None recorde d. Surgeries None recorde d. Imaging None recorde d. Medication Orders flutica sone propion ate 50 mcg/act uation nasal spray,s uspensi on 2020 [id number], [address], [place], [id number], 14:10:22 diphenh ydramin e 12.5 mg/5 mL oral liquid 2020 [id number], [address], [place], [id number], 14:10:18 Patient TargetsNo targets recorded. Patient Instructions Encounter Date Encounter Id Patient Instructions Last Modified By Organization Details Last Modified Time 01/26/2016 [id number] visual acuity* Not available 03/16/2016 04:29:51 patient health questionnaire modified for adolescents* Not available 03/16/2016 04:30:17 tuberculosis ris k assessment* 17 Not available 03/16/2016 04:30:17 01/13/2018 [id number] Learning About How to Make Healthy Changes in Your Child's Diet lnorrenberns Not available 01/13/2018 09:39:05 Considering More Physical Activity for Your Child lnorrenberns Not available 01/13/2018 09:39:05 visual acuity* lnorrenberns Not availabl e 01/13/2018 09:39:06 03/08/2020 [id number] Learning About How to Make Healthy Changes in Your Child's Diet kparmeswaran Not available 03/08/2020 16:03:45 Considering More Physical Activity for Your Child kparmeswaran Not available 03/08/2020 16:03:45 Well Visit, Teens: Care Instructions kparmeswaran Not available 03/08/2020 16:03:45 Well Visit, 12 Years to Young Teen: Care Instructions kparmeswaran Not available 03/08/2020 16:03:45 Well Visit, Your Teen: Care Instructions kparmeswaran Not available 03/08/2020 16:03:45 tuberculosis ris k assessment* Not available 03/08/2020 17:03:35 visual acuity* [email or web address] Not available 1 05/09/2019 17:16:34 Pl see A & P sections kparmeswaran Not available 03/12/2020 19:11:03 10/03/[id number] see A & P sections kparmeswaran Not available 10/04/2020 09:09:07 Reason for Referral Physician/Internist Re ferral for Abnormal vision new pt with vision of 20/200 Referring Physician: Silvia Miller, Pediatric Medicine, Encounter Date: 01/26/2016 Pediatric Orthopedic Referra l for Low back pain Back pain radiating to R leg to rule out radicular low back pain Referring Physician: Himanshu Gregory, Pediatric Medicine, Encounter Date: 03/08/2020 Physical Therapist Referral for Low back pain Referring Physician: Himanshu Gregory Pediatric Medicine, Encounter Date: 10/03/2020 Results Created Date Observation Date Name Description Value Unit Range Abnormal Flag Note LastModifiedBy Organization Detail LastModifiedTime 01/26/20 16 01/26/2016 visua l acuit y* R Eye Uncorrected 20/200 Not Available In-O ffice Order Internal Use Only DO Not Attach Compendium DO Not Attach Compendium, Do Not Delete/merge, [id number] 01/26/2016 11:24:18 01/26/20 16 01/26/2016 visua l acuit y* L Eye Uncorrected 20/200 Not Available In-O ffice Order Internal Use Only DO Not Attach Compendium DO Not Attach Compendium, Do Not Delete/merge, [id number] 01/26/2016 11:24:18 01/14/20 18 01/13/2018 visua l acuit y* R Eye Uncorrected 20/100 Not Available In-O ffice Order Internal Use Only DO Not Attach Compendium DO Not Attach Compendium, Do Not Delete/merge, [id number] 01/13/2018 09:11:04 01/14/20 18 01/13/2018 visua l acuit y* L Eye Uncorrected 20/80 Not Available In-O ffice Order Internal Use Only DO Not Attach Compendium DO Not Attach Compendium, Do Not Delete/merge, [id number] 01/13/2018 09:11:04 03/08/20 20 03/08/2020 visua l acuit y* R Eye Uncorrected 20/50 Not Available In-O ffice Order Internal Use Only DO Not Attach Compendium DO Not Attach Compendium, Do Not Delete/merge, [id number] 03/08/2020 15:36:17 03/08/20 20 03/08/2020 visua l acuit y* L Eye Uncorrected 20/40 Not Available In-O ffice Order Internal Use Only DO Not Attach Compendium DO Not Attach Compendium, Do Not Delete/merge, [id number] 03/08/2020 15:36:17 Result Notes None recorded. Problems No Known Problems Medical Equipment None Reported. Allergies No known drug allergies Medications Name Sig Start Date Stop Date Status Note LastModified by Organization Details LastModified Time amoxicillin 500 mg capsule 03/12 completed Not Available Not Available Not Available permethrin 5 % topical cream 03/12 completed Not Available Not Available Not Available amoxicillin 875 mg tablet 03/12 completed Not Available Not Available Not Available Lice Treatment (permethrin) 1 % topical liquid 03/12 completed Not Available Not Available Not Available tobramycin 0.3 % eye drops 03/12 completed Not Available Not Available Not Available fluticasone propionate 50 mcg/actuatio n nasal spray,suspen gilmar SPRAY 1 SPRAY IN EACH NOSTRIL EVERY MORNING active Not Available Not Available No t Available Ventolin HFA 90 mcg/actuatio n aerosol inhaler 03/12 completed Not Available Not Available Not Available azithromycin 500 mg tablet 03/12 completed Not Available Not Available Not Available Virtussin AC 10 mg-100 mg/5 mL oral liquid 03/12 completed Not Available Not Available Not Available M-Dryl 12.5 mg/5 mL oral liquid TAKE 10 ML BY MOUTH EVERY 8 HOURS active Not Available Not Available No t Available Vitals Date Recorded Body temperature Body height Body mass index (BMI) Body weight Oxygen saturation Oxygen saturation in Arterial blood by Pulse oximetry Heart rate Respiratory rate Systolic blood pressure Diastolic blood pressure Provider Name and Address Organization Details Last Updated DateTime 8 98 [degF] 167.64 cm 19.5 kg/m2 59882.6 8 g 99 % 99 % 88 /min 20 /min 120 mm[Hg] 78 mm[Hg] Brittaney Henleygins [facility] 8 09:07:33 Date Recorded Body height Body mass index (BMI) Body mass index (BMI) Percentile per age and sex Body weight Heart rate Oxygen saturation Oxygen saturation in Arterial blood by Pulse oximetry Body temperature Systolic blood pressure Diastolic blood pressure Provider Name and Address Organization Details Last Updated DateTime 0 165.1 cm 22.2 kg/m2 67 % 02881.5 g 92 /min 98 % 98 % 98.2 [degF] 112 mm[Hg] 58 mm[Hg] [facility] 0 15:35:53 Date Recorded Body height Body weight Body mass index (BMI) Heart rate Respiratory rate Body temperature Systolic blood pressure Diastolic blood pressure Provider Name and Address Organization Details Last Updated DateTime 6 160.66 cm 74793.6 3 g 17.8 kg/m2 76 /min 20 /min 98.1 [degF] 108 mm[Hg] 64 mm[Hg] Rhoda Francis [facility] 6 11:13:06 Social History Question Answer Notes LastModified by Organizat ion Details LastModified Time Tobacco Smoking Status Never Smoker Rhoda Francis [facility] 01/26/2016 11:16:39 Animal Exposure? Yes 1 Cat Information not available 01/26/2016 Do You Wear A Helmet When Biking? No Information not available 01/26/2016 Are You Or Have You Been Involved With Bullying? No Information not available 01/26/2016 What Is Your Level Of Caffeine Consumption? Occasional Information not available 01/26/2016 What Type Of Marine Chronometer Assembler Do You Use? None Information not available 01/26/2016 What Type Of Diet Are You Following? REGULAR Information not available 01/26/2016 Have There Been Any Changes To Your Family Or Social Situation? No Information not available 01/26/2016 What Is The Fluoride Status Of Your Home? Unknown Information not available 01/26/2016 Are There Any Guns Present In Your Home? No Information not available 01/26/2016 What Is Your Home Situation? Mother Step Dad Devon-(1 0mos) Jaime(1 3) Nataliya(11) Information not available 01/26/2016 Do You Use Insect Repellent Routinely? Yes Information not available 01/26/2016 Car Seat Type Or Seat Belt? Seat Belt Information not available 01/26/2016 Parent Involvement? Dad Not Invloved Information not available 01/26/2016 Riding In Car Front Seat? Yes Information not available 01/26/2016 What Was The Date Of Your Most Recent Tobacco Screening? 01/13/2018 Information not available 10/22/2018 What Is Your Parents' Marital Status? Information not available 01/26/2016 Pool Exposure No Information not available 01/26/2016 What Is The Name Of Your School? [email or web address] Information not available 01/13/2018 Do You Have Any Siblings? 3 Information not available 01/26/2016 Do You Have Smoke And Carbon Monoxide Detectors In Your Home? Yes Information not available 01/26/2016 Are You Passively Exposed To Smoke? No Information not available 01/26/2016 How Much Tobacco Do You Smoke? No Information not available 01/26/2016 What Types Of Sporting Activities Do You Participate In? Cheerleading Information not available 01/26/2016 Do You Use Sunscreen Routinely? Yes Information not available 01/26/2016 How Many Years Have You Smoked Tobacco? 0 Information not available 01/26/2016 Year In School 11 Informatio n not available 03/08/2020 Sex: Female Functional Status Question Answer Note LastModified by Organization D etails LastModified Time What is your exercise level? Heavy Information not available 01/26/2016 Mental Status None recorded. Family History Relationship Description Onset Age of this Age Resolved Age Notes LastModified by Organization Details LastModified Time Maternal Grandmother Hypertensive disorder [email or web address] Not available 2015 11:15:17 Maternal Grandmother Diabetes mellitus [email or web address] Not available 2015 11:15:46 Maternal Grandmother Hyperthyroid ism mtostado Not available 2015 11:16:07 Notes:Mother=well adult Fath er=well adult Medical History Condition Response Blood Diseases N Ear or Hearing Problems N Thyroid Problems N Depression N Developmental or Behavioral Disorders N Skin Problems N Premature N Anemia N Constipation N Anxiety Disorder N Diabetes N Muscle, Joint, or Bone Problems N Bedwetting N Vision or Eye Problems N Heart Problems/Murmur N Seizures/Epilepsy N Head Injury/Concussion N Cancer N Asthma N Allergies N ADHD N Bladder or Kidney Problems N Headaches N Chicken Pox N Autism Spectrum Disorder (ASD) N Gynecological HistoryNo gynecological history recorded. Obstetrics History GPAL:G 0 P 0 0 0 0 Immunizations Vaccine Type Date Status Note Provider Nam e and Address Organization Details Recorded Time meningococcal B, OMV 0 completed DAVID [place], [place] [facility] 03/08/2020 17:09:32 meningococcal MCV4P 0 [place] [facility] 03/08/2020 17:09:32 Influenza, split virus, quadrivalent, PF 0 [place] [facility] 03/08/2020 17:09:32 DTP 4 completed [place] [facility] 01/23/2016 18:27:56 DTP 4 [place] [facility] 01/23/2016 18:28:37 DTP 4 [place] [facility] 01/23/2016 18:28:47 DTP 5 brandon [place] [facility] 01/23/2016 18:28:53 DTP 9 [place] [facility] 01/23/2016 18:28:58 Hib, unspecified formulation 4 [place] [facility] 01/23/2016 18:29:17 Hib, unspecified formulation 4 [place] [facility] 01/23/2016 18:29:23 Hib, unspecified formulation 4 completed Remi [place] [facility] 01/23/2016 18:29:30 Hib, unspecified formulation 5 completed Rem[place] [facility] 01/23/2016 18:29:35 Hep A, unspecified formulation 6 completed Rem[place] [facility] 01/23/2016 18:29:53 Hep A, unspecified formulation 7 completed Rem[place] [facility] 01/23/2016 18:30:00 Hep B, unspecified formulation 4 completed Remi [place] [facility] 01/23/2016 18:30:51 Hep B, unspecified formulation 4 completed Rem[place] [facility] 01/23/2016 18:30:57 Hep B, unspecified formulation 4 completed Rem[place] [facility] 01/23/2016 18:31:02 Hep B, unspecified formulation 4 completed Rem[place] [facility] 01/23/2016 18:31:07 HPV, unspecified formulation 5 completed Rem[place] [facility] 01/23/2016 18:31:28 HPV, unspecified formulation 5 completed Rem[place] [facility] 01/23/2016 18:31:35 HPV, unspecified formulation 6 completed Rem[place] [facility] 01/23/2016 18:31:44 influenza, unspecified formulation 6 completed Remi [place] [facility] 01/23/2016 18:32:01 MMR 5 completed Rem[place] [facility] 01/23/2016 18:32:17 MMR 9 completed Rem[place] [facility] 01/23/2016 18:32:24 MMR 6 completed Rem[place] [facility] 01/23/2016 18:32:30 meningococcal ACWY, unspecified formulation 5 completed Rem[place] [facility] 01/23/2016 18:32:51 pneumococcal, unspecified formulation 4 completed Rem[place] [facility] 01/23/2016 18:33:08 pneumococcal, unspecified formulation 4 completed Rem[place] [facility] 01/23/2016 18:33:14 pneumococcal, unspecified formulation 4 completed Rem[place] [facility] 01/23/2016 18:33:20 pneumococcal, unspecified formulation 5 completed Rem[place] [facility] 01/23/2016 18:33:26 polio, unspecified formulation 4 completed Remi [place] [facility] 01/23/2016 18:33:45 polio, unspecified formulation 4 completed Rem[place] [facility] 01/23/2016 18:33:52 polio, unspecified formulation 4 completed Rem[place] [facility] 01/23/2016 18:33:58 polio, unspecified formulation 9 completed Rem[place] [facility] 01/23/2016 18:34:05 Tdap 5 completed Remi [place] [facility] 01/23/2016 18:34:29 varicella 5 completed Remi [place] [facility] 01/23/2016 18:34:45 varicella 8 completed Remi [place] [facility] 01/23/2016 18:34:51 varicella 6 completed Remi [place] [facility] 01/23/2016 18:34:56 Past Encounters Encounter ID Performer Location Encounter Start Date Encounter Closed Date Diagnosis/Indication Diagnosis SNOMED-CT Code Diagnosis ICD10 Code Diagnosis Note [id number] Silvia DAVE Miller (Peds) [address] [place] [address] 01/26/2016 10:49:59 01/29/2016 10:18:54 Well child 159167391 Z00.129 Abnormal vision 3118424 H54.7 [id number] JAMES MaravillaMARK (Peds) [address] [place] [address] 01/13/2018 08:53:42 01/14/2018 16:27:45 Well child 515111625 Z00.129 Riya is a sweet 12 year old white female here for school physical. She is recovering from recent fibula fracture. She reports enjoying highschool a lot and doing well in class.Adol escent anticipato ry guidance discussed: Healthy diet, limiting sugary drinks, avoiding energy drinks, family meal times. 1 hour of physical activity a day. Limiting screen time to 2 hours a day (not including homework time). Dental exams and twice daily brushing. Discussed puberty and hormonal changes. Discussed dangers of drug, alcohol, and tobacco use. Safe Sex. Wearing seat belt in cars. Encourage reading, making sure child is taking responsibi lity for homework.I UTDPHq-9 score of 4Declines flu shotHas glasses and needs to wear them at all times Fracture of fibula 95252 007 S82.401D Reports injury occurred while playing on blow up water slide. Left distal fibula fracture with mild joing dislocatio n. She is being followed and management by [facility]. Returns in 1-2 weeks to be release out of walking boot. Diet education 12800767 Z71.3 Exercises education, guidance, and counseling 130803381 Z71.82 [id number] MD Harvinder Li rai (Peds) [address] [place] [address] 03/08/2020 15:17:45 03/15/2020 16:53:43 Well child visit 032516738 Z76.2 14 yr old female adolescent brought for wcc HEADSS -No redflags Normal well adolescent exam Vision screen normal, Advised to consult optometris t for formal vision assessment TB screen negative Vaccines UTD ,Needs Bexsero#1, Menactra booster/fl u shot Offered STD testing but refused Age appropriat e AG given & printed care instructio ns provided RTC in 1 yr for WCC Diet education 23514293 Z71.3 Exercises education, guidance, and counseling 293030197 Z71.82 Active or passive immunization 764678678 Z23 Low back pain 119588401 M54.5 Has chronic low back pain with features suggestive of sciaticaRe f to ped ortho for further evaluation [id number] MD Harvinder Li rai (Peds) [address] [place] [address] 10/03/2020 10:50:47 10/11/2020 16:18:13 Low back pain 802098197 M54.5 Has Hx of low back pain ,was seen by ped ortho in 02/2020Imp : Mild C shaped curvature of back with cob angle of 26 deg C& T12PT ordered,RT C in 3 monthMothe r could not schedule PT in [facility] due to the pandemic,w ould like referral to local clinic Allergic rhinitis 662944 04 J30.9 15 yr old female with symptoms suggestive of allergic rhinitispr escribed flonase/cl aritinRTC in 1 week if no symptom improvemen t is noted Health Concerns Section Related Observation LastModified by Organization Detai ls LastModified Time None Recorded Concern Status LastModified by Organization Details LastModified Time None Recorded Advance Directives Directive None Recorded Payers Encounter Date Sequence Insurance Name Policy Number Policy Ship[place] Covered Member ID Shipman Member ID Guarantor Name 01/26/2016 1 [employer] (MEDICAID HM) [id number] Riya Duque [id number] Heidy Woof 01/13/2018 1 [employer] [facility] (MEDICAID HM) [id number] 0003 Riya Duque [id number] Heidy Woof 03/08/2020 1 [employer] (MEDICAID HMO) [id number] Riya Duque [id number] Heidy Woof 10/03/2020 1 [employer] [employer] [facility] (MEDICAID HMO) [id number] 0003 Riya Duque [id number] Heidy Woof Notes Date Note Type Note Provider Name a nd Address Organization Details Recorded Time 01/26/2016 text/html 12 well child check DAVE Rajput Attn: Accounting,[address] [place], [address], [facility] 01/26/2016 12:07:34 01/13/2018 text/html Recent fracture of left distal fibular with joint displacement- currently wearing walking boot for 2 more weeks then will transition to shoe. Was is a short leg cast for 2-3 months priro to transitioning to walking boot. No other recent illnesses or trips to the ER. Mother denies questions or concerns at this time. MARK MARQUEZ Attn: Accounting,[address] [place], [address], [facility] 01/13/2018 09:39:45 03/08/2020 text/html Pediatric Back PainReported bypatient.Locatio n:lumbar;pain radiating to the legs Quality:sharp Severity:same Duration:chronic Onset/Timing:recu rrent episode Context:No Hx of trauma/over use/unusual activity Alleviating Factors:rest; relieved by changing position Aggravating Factors:movement/ positioning Associated Symptoms:no fever; no weak limbs; no tingling/numbness of the legs/feet; no incontinence 14 yr old female adolescent brought by [facility].She has concerns about her back pain for the past few months Himanshu Gregory MD Attn: Accounting,[address] [place], [address], [facility] 03/12/2020 19:11:55 10/03/2020 text/html 15 yr old female with c/o runny nose,thick nasal discharge & sneezing for the past 3 days ,No cough/fever/SOB/v omiting ,Loose stools,No si ck contactsNo response to OTC cold medications Himanshu Gregory MD Attn: Accounting,[address] [facility], [place], [address], [place] [facility] 10/04/2020 09:09:50 OBGyn Episode No OBEpisode recorded.
--- OUTSIDE RECORDS SUMMARY | 2024-05-08 18:56 | XMS_ITS | Clinical Summary ---
Author Organization [facility] Address [address] [place] [address] Care Team Providers Care Precise Winder Name Role Phone Theron Gregory MD [facility] Care Provider Source Comments [facility] [employer],non-owned Affiliates and Associated Physician Practices is amultiple site organization consisting of ambulatory clinics and hospital sitesin [place], [place], [place] and [place]. This disclosure is being madepursuant to the Care Everywhere program and may not contain all information available regarding this patient. Last updated 17.[facility] [employer] Allergies No known active allergies Medications * [...] 03/20/2020 Assessment & Plan (03/20/2020 4:52 PM FOOD ASSEMBLER): PLAN: 1. Questions solicited and answered. 2. [...] Comments Blood Pressure 128/58 03/20/2020 2:02 PM FOOD ASSEMBLER Pulse 100 06/18/2013 12:08 PM CDT Temperature - - Respiratory Rate 24 06/18/2013 12:08 PM CDT Oxygen Saturation 100% 06/18/2013 12:08 PM CDT Inhaled Oxygen Concentration - - Weight 60.6 kg (133 lb 9.6 oz) 03/20/2020 2:02 P M FOOD ASSEMBLER Height 164.8 cm (5' 4.88 ) 03/20/2020 2:02 PM CS T Body Mass Index 22.31 03/20/2020 2:02 PM FOOD ASSEMBLER Plan of Treatment Health Maintenance Due Date [...] age to complete this topic Care Teams Precise Winder Relationship Specialty Start Date End Date Theron Gregory MD [address] [place] [address] PCP - General Pediatrics 03/20/20
--- OUTSIDE RECORDS SUMMARY | 2024-05-08 18:56 | XMS_ITS | Referral Summary ---
Author Organization [facility] Address [address] [place] [address] Care Team Providers Care Glass Handler Name Role Phone Theron Gregory MD [facility] Care Provider Source Comments [facility] [employer],non-owned Affiliates and Associated Physician Practices is amultiple site organization consisting of ambulatory clinics and hospital sitesin [place], [place], [place] and [place]. This disclosure is being madepursuant to the Care Everywhere program and may not contain all information available regarding this patient. Last updated 17.[facility] [employer] Allergies No known active allergies Medications * [...] 03/20/2020 Assessment & Plan (03/20/2020 4:52 PM PEDIATRIC CARDIOLOGIST): PLAN: 1. Questions solicited and answered. 2. [...] Comments Blood Pressure 128/58 03/20/2020 2:02 PM PEDIATRIC CARDIOLOGIST Pulse 100 06/18/2013 12:08 PM CDT Temperature - - Respiratory Rate 24 06/18/2013 12:08 PM CDT Oxygen Saturation 100% 06/18/2013 12:08 PM CDT Inhaled Oxygen Concentration - - Weight 60.6 kg (133 lb 9.6 oz) 03/20/2020 2:02 P M PEDIATRIC CARDIOLOGIST Height 164.8 cm (5' 4.88 ) 03/20/2020 2:02 PM CS T Body Mass Index 22.31 03/20/2020 2:02 PM PEDIATRIC CARDIOLOGIST Plan of Treatment Not on file Care Teams Glass Handler Relationship Specialty Start Date End Date Theron Gregory MD [address] [place] [address] PCP - General Pediatrics 03/20/20
--- OUTSIDE RECORDS SUMMARY | 2024-05-08 18:56 | XMS_ITS | Patient Health Summary ---
Author Organization [facility] Address [address] [place] [address] Care Team Providers Care Clerical And Office Support Workers Name Role Phone Therno Gregory MD [facility] Care Provider Note from [facility],non-owned Affiliates and Associated Physician Practices is amultiple site organization consisting of ambulatory clinics and hospital sitesin [place], [place], [place] and [place]. This disclosure is being madepursuant to the Care Everywhere program and may not contain all information available regarding this patient. Last updated 17.[facility] Allergies No known active allergies Medications * [...] Comments Blood Pressure 128/58 03/20/2020 2:02 PM [employer] Pulse 100 06/18/2013 12:08 PM CDT Temperature - - Respiratory Rate 24 06/18/2013 12:08 PM CDT Oxygen Saturation 100% 06/18/2013 12:08 PM CDT Inhaled Oxygen Concentration - - Weight 60.6 kg (133 lb 9.6 oz) 03/20/2020 2:02 P M [employer] Height 164.8 cm (5' 4.88 ) 03/20/2020 2:02 PM CS T Body Mass Index 22.31 03/20/2020 2:02 PM [employer] Procedures * XR SPINE ENTIRE 2 OR [...] ENTIRE 2 OR 3VW (03/20/2020 2:17 PM [employer]) Anatomical Region Laterality Modality Spine Radiographic Zayda ging 03/20/2020 2:16 PM [employer] Impressions 03/20/2020 2:42 PM [employer] 1. Spinal curvature as above, no intrinsic vertebral body anomaly. Please see orthopedic surgery note for Ramirez angle measurements. 2. Right inferior pelvic tilt. Risser IV-V Reading Radiologist: Troy Funez on 03/20/2020 at 2:42 PM Narrative 03/20/2020 2:42 PM [employer] INDICATION: Other dorsalgia COMPARISON: None available. TECHNIQUE: [...] Smith MD on 06/12/2018 at 2:28 PM Sirni Brantley PA-C DIAGNOSTIC IMAGING O RDERABLES * XR FOOT RIGHT WT BEARING 3VW (03/04/2018 11:36 AM [employer]) Anatomical Region Laterality Modality Ankle / Foot Radiographic Zayda ging 03/04/2018 11:3 9 AM [employer] Impressions 03/04/2018 11:43 AM [employer] Healing left foot fractures. Bilateral pes planus. Reading Radiologist: Jaime Smith MD on 03/04/2018 at 11:43 AM Narrative 03/04/2018 11:43 AM [employer] INDICATION: Dislocation of tarsometatarsal joint of left [...] LEFT WT BEARING 3VW (03/04/2018 11:36 AM [employer]) Only the most recent of3 resultswithin the time period is included. Anatomical Region Laterality Modality Ankle / Foot Radiographic Zayda ging 03/04/2018 11:3 9 AM [employer] Impressions 03/04/2018 11:43 AM [employer] Healing left foot fractures. Bilateral pes planus. Reading Radiologist: Jaime Smith MD on 03/04/2018 at 11:43 AM Narrative 03/04/2018 11:43 AM [employer] INDICATION: Dislocation of tarsometatarsal joint of left [...] fracture injury. Dictated by Jessie Shea MD (bank president). I, Maylin Castillo, have personally reviewed the [...] fracture injury. Dictated by Jessie Shea MD (bank president). I, Maylin Castillo, have personally reviewed the [...] Shawn Domínguez MD MR ORDERABLES Care Teams Clerical And Office Support Workers Relationship Specialty Start Date End Date Theron Gregory MD [address] [place] [phone] PCP - General Pediatrics 03/20/20
--- NOTE | 2024-05-08 19:05 | ED_ITS ---
HPI - Recheck/Abnormal Lab/Rx General Chief Complaint: Recheck/Abnormal Lab/Rx Stated Complaint: Strep throat, difficulty swallowing Time Seen by Provider: 05/08/24 18:41 History of Present Illness HPI narrative: 18-year-old female with history of recurrent strep throat for the last 6 months presenting to the emergency room with chief complaint of difficulty swallowing, pharyngitis symptoms and feeling occur strep throat is getting worse despite amoxicillin. She went to urgent care this morning, got the strep swab did tested positive and sent home with amoxicillin. Patient states that she has failed amoxicillin multiple times in the past and Augmentin is usual helps her in addition to steroids. Patient presents to the ER with complaints of difficulty swallowing but denies any fever, chills, shortness a breath, chest pain, headache or vision changes. Patient was previously evaluated for tonsillectomy in childhood but did not pursue this. No history of tonsillar abscess or tonsillar surgery/drainage previously. Related Data Allergies Allergy/AdvReac Type Severity Reaction Status Date / Time No Known Allergies Allergy Verified 05/08/24 18:29 Review of Systems Review of Systems: As reviewed above in HPI [facility] Past Medical History Medical History No active medical problems Social History Social History Smoking status: Never smoker Exam Narrative: GENERAL: Uncomfortable appearing but not any acute distress HEAD: [Normocephalic, atraumatic.] EYES: [PERRLA and EOMI.] ENT: Posterior oropharynx with bilateral tonsillar erythema and exudates without any signs of compromise, no uvular edema and is midline, no base of tongue swelling, no pooling of secretions. There is some muffling to her voice but no signs of peritonsillar abscess or any restricted range of motion of the neck. No lymphadenopathy. NECK: Supple. CHEST: [Clear to auscultation. No respiratory distress.] HEART: [Regular rate and rhythm]. No murmur heard. [Normal peripheral pulses.] ABDOMEN: [Soft, nondistended], [nontender], [No rigidity or guarding] EXTREMITIES: Normal range of motion. [No edema.] SKIN: Warm, dry, no rash. NEURO: [No focal deficits]. Alert and oriented [x3.] PSYCH: Very tearful but not any distress, anxious about IV or intramuscular medications Course Vital Signs Vital signs: Vital Signs Temperature 36.8 C 05/08/24 18:25 Pulse Rate 125 H 05/08/24 18:25 Respiratory Rate 20 05/08/24 18:25 Blood Pressure 145/78 H 05/08/24 18:25 Pulse Oximetry 100 05/08/24 18:25 Oxygen Delivery Room Air 05/08/24 18:25 Temperature 36.8 C 05/08/24 18:25 Pulse Rate 125 H 05/08/24 18:25 Respiratory Rate 19 05/08/24 18:51 Blood Pressure 145/78 H 05/08/24 18:25 Pulse Oximetry 100 05/08/24 18:25 Oxygen Delivery Room Air 05/08/24 18:25 MDM - Recheck/Abnormal Lab/Rx MDM Narrative Medical decision making narrative: 18-year-old female with history of recurrent strep throat and tonsillitis presenting to the emergency department with strep throat that she feels is worsening. She was given amoxicillin urgent care even though she normally gets Augmentin which helped her symptoms addition of steroids. She has bilateral tonsillar hypertrophy and exudates with erythema but no significant signs of compromise of airway, no pooling secretions, uvula is midline without any deviation. No signs of peritonsillar abscess. No lymphadenopathy restricted range of motion of the neck. She has tachycardic in tearful and adamantly denies any IV access or intramuscular medications. Explained to the patient that I recommended IV access, Decadron and fluid hydration as well as pain control and antibiotics. Patient and they denied after we went over risks and benefits of IV access and medications versus trying oral medications. Patient was provided p.o. prednisone 50 mg as well as Augmentin and will be sent home with prescriptions for both and we went over very strict return precautions including worsening throat pain, difficulty swallowing, dysphonia, pooling secretions, choking or any other concerns. She was referred to the local research associate quality control qc for evaluation for potential elective tonsillectomy after her current flare of strep throat has been treated. Patient is comfortable with this plan and verbalized understanding all the return precautions and my concerns. Patient was discharged at this time accompanied by family. Medical Records Attestation: I reviewed the patient's medical records. Discharge Plan Discharge Clinical Impression: Acute streptococcal pharyngitis, Tonsillar exudate Patient Disposition: Home, Self-Care Condition: Stable Instructions: Antibiotic Form Additional Instructions: You have pharyngitis from strep A. Given that this is a recurrent issue for yourself over the last 6 months you would benefit from a likely tonsillectomy or at least evaluation by an research associate quality control qc which we will refer you to. We will send you home with steroids and Augmentin which has helped her last flare up. Return with any new or worsening concerns as difficulty breathing, inability to tolerate any oral intake, choking or any other concerns. Patient Language: Paraguayan Prescriptions: New prednisone 20 mg tablet 20 mg PO DAILY 5 Days Qty: 5 0RF amoxicillin-pot clavulanate 875-125 mg tablet 1 tablet PO Q12H 7 Days Qty: 14 0RF No Action prednisone 20 mg tablet 20 mg PO DAILY 5 Days Qty: 5 0RF amoxicillin-pot clavulanate 875-125 mg tablet 1 tablet PO Q12H Qty: 20 0RF Follow-up/Referrals: Zhang Jorgensen MD [Physician] - 1 Week (Recurrent strep pharyngitis, tonsillectomy referral) PHYSICIAN,SOCIAL MEDIA DESIGNER [Primary Care Provider] - Time of Disposition: 19:11
[2024-05-08] MEDS: AMOXICILLIN/CLAVULANATE K 875-125 MG TAB 1 TABLET PO (19:35)
[2024-05-08] MEDS: predniSONE 10 MG TABLET 50 MG PO (19:39)
== END 2024-05-08 20:11 | disposition home or self-care (01) ==
PROVIDERS: Emergency Provider Student in an Organized Health Care Education/Training Program
DX: J03.01 Acute recurrent streptococcal tonsillitis (principal)
CPT/HCPCS: 96361; 96374; 99284; A9270; J7512